=== PATIENT | female | born 1960 | race Caucasian/White ===

== ENCOUNTER 2021-07-16 10:59 | Emergency (ER) | payer OTHER, SELFPAY ==
--- NOTE | ~2021-07-16 | XR_ITS ---
EXAMINATION: XR shoulder RT min 2V EXAM DATE: 07/16/2021 12:12 INDICATION: Fall a few days ago. Initial encounter. Persistent pain. TECHNIQUE: The following right shoulder projections obtained: frontal projection with internal rotati on, frontal projection with external rotation, Grashey, and scapular Y view (4+ views). There is no prior study for comparison. FINDINGS: No evidence of right shoulder rotator cuff calcific tendinosis. There is no glenohumeral joint, moderate acromioclavicular joint primary osteoarthritis. There are no acute fractures or dislo cations identified. There is no subcutaneous gas. The soft tissue is unremarkable. There are no r adiopaque foreign bodies. IMPRESSION: 1. Right shoulder exam without acute osseous findings. 2. Acromioclavicular moderate osteoarthritis. Reviewed, dictated and finalized at location A. [facility]
--- NOTE | ~2021-07-16 | XR_ITS ---
EXAMINATION: XR elbow RT min 3V EXAM DATE: 07/16/2021 12:12 INDICATION: fall a few days ago with persistent right elbow pain. TECHNIQUE: Right elbow frontal, lateral with flexion, and oblique projections obtained and reviewed. There is no prior study for comparison. FINDINGS: Right elbow anterior humeral line intact. There is mild right elbow primary osteoarthritis . There are no acute fractures or dislocations identified. There is no subcutaneous gas. The soft t issue is unremarkable. There are no radiopaque foreign bodies. IMPRESSION: 1. XR elbow RT min 3V exam without acute osseous findings. Reviewed, dictated and finalized at location A. [facility]
[2021-07-16 11:27] VITALS: BP 143/74; PULSE 79; RESP 18; TEMP 36.5; O2SAT 100
--- NOTE | 2021-07-16 11:50 | ED.UPPEXIN ---
HPI - Extremity Injury (Upper) General Chief Complaint: Extremity Injury, Upper Stated Complaint: Rt Elbow,Rt Shoulder Pain due to fall Source: patient, RN notes reviewed and old records reviewed Mode of arrival: ambulatory Limitations: no limitations History of Present Illness HPI narrative: 61-year-old female who presents to [facility] with complaints of fall with injury to her right shoulder and right elbow when tripped over door prop and fell into a cinder block wall onto right shoulder and right elbow Friday evening. Patient has pain to posterior aspect of right shoulder with pain radiating down posterior aspect of her upper arm to her elbow. She also states that she has pain to right elbow region at olecranon process area. Patient reports that she did not fall onto ground but into cinder wall hitting her shoulder and elbow area, did not hit head or lose consciousness. Patient denies any tingling or numbness to her right arm with full ROM noted to right arm and shoulder, pulses right arm strong quality. Patient reports that she has used ice, heat, stretching exercises, Tylenol and pillows for support with pain worse at night with some difficulty sleeping, rates pain 6/10. MD complaint: injury to: right, shoulder and elbow Onset (ago): day(s) (5) Other injuries: none Place: outdoors Severity: moderate Severity scale (1-10): 6 Treatments prior to arrival: cold therapy (heat) and other (Tylenol) Related Data Home Medications Medication Instructions Recorded Confirmed No Home Medications 07/16/21 07/16/21 Allergies Allergy/AdvReac Type Severity Reaction Status Date / Time No Known Allergies Allergy Verified 07/16/21 11:44 Review of Systems Review of Systems: CONSTITUTIONAL: Denies fever, chills, or sweats. EYES: Denies visual changes, redness, or discharge. ENT: Denies rhinorrhea, congestion, sore throat, or otalgia. CARDIOVASCULAR: Denies chest pain, palpitations, or edema. RESPIRATORY: Denies cough or dyspnea. GASTROINTESTINAL: Denies abdominal pain, nausea, vomiting, or diarrhea. GENITOURINARY: Denies dysuria or hematuria. SKIN: Denies rash or itching. MUSCULOSKELETAL: Denies back pain,positive for right shoulder and right elbow joint pain, or myalgia. NEUROLOGIC: Denies headache, numbness, or weakness. PSYCHIATRIC: Denies anxiety or depression. All systems reviewed & are unremarkable except as noted in HPI and below PMFSH Past Medical History Medical History (Updated 07/16/21 @ 22:42 by Zeynep Lynn NP) Seasonal allergies Surgical History Surgical History (Updated 07/16/21 @ 12:16 by Zeynep Lynn NP) H/O: hysterectomy History of tonsillectomy Family History Family History (Updated 07/16/21 @ 22:43 by Zeynep Lynn NP) Grandparent Cerebrovascular accident Mother Rheumatoid arthritis Lung cancer Sibling Rheumatoid arthritis Social History Social History (Updated 07/16/21 @ 22:44 by Zeynep Lynn NP) Smoking status: Never smoker Alcohol intake: never Substance use: never Living arrangements: with family Gender identity (if verbalized by the patient): Female Comments At time of signature, agree with nursing past medical, surgical, social and family history. There is no relevant family history pertinent to the presenting complaint Exam Narrative: GENERAL: Well-appearing, well-nourished, and in no acute distress. HEAD: Normocephalic, atraumatic. EYES: PERRLA and EOMI. ENT: Nares clear, no rhinorrhea or epistaxis. Mucous membranes moist.TM's normal with good light reflex throat pink with no lesions or exudates, tonsils absent NECK: Supple.no lymphadenopathy CHEST: Clear to auscultation. No respiratory distress.SAO2 100% on room air HEART: Regular rate and rhythm. No murmur heard. Normal peripheral pulses. ABDOMEN: Soft, nontender, nondistended, normal active bowel sounds. EXTREMITIES: Normal range of motion. No edema Pain to posterior right shoulder radiating
== END 2021-07-16 12:34 | disposition home or self-care (01) ==
PROVIDERS: Emergency Provider Registered Nurse
DX: S40.011A Contusion of right shoulder, initial encounter (principal); S50.01XA Contusion of right elbow, initial encounter; W18.09XA Striking against other object with subsequent fall, initial encounter
CPT/HCPCS: 73030; 73080; 99214; G0463

== ENCOUNTER 2022-12-13 12:18 | Emergency (ER) | payer OTHER, SELFPAY ==
[2022-12-13 12:26] VITALS: BP 141/77; PULSE 82; RESP 18; TEMP 36.3; O2SAT 98
[2022-12-13 12:27] VITALS: BP 141/77; PULSE 82; RESP 18; TEMP 36.3; O2SAT 98
--- NOTE | 2022-12-13 12:35 | ED.SKABFB ---
HPI - Skin/Abscess/Foreign Bdy General Chief complaint: Skin/Abscess/Foreign Body Stated complaint: Insect Bite Rt Breast Time Seen by Provider: 12/13/22 12:34 Source: patient and RN notes reviewed Mode of arrival: ambulatory Limitations: dementia History of Present Illness HPI narrative: 62-year-old female presents with concern for possible insect bite to her right breast. She reports she noticed the bite 2 days ago, she has been using antibiotic ointment and a bandage. Reports areas got slightly smaller but it did have some bloody drainage this morning. She denies general malaise, fever, aches, chills, sweats. She denies purulent discharge. She denies any red streaking. She reports she gets yearly mammograms her last mammogram was in July and was normal MD complaint: insect bite/sting and other (Redness) Related Data Allergies Allergy/AdvReac Type Severity Reaction Status Date / Time No Known Allergies Allergy Verified 12/13/22 12:27 Review of Systems Review of Systems: CONSTITUTIONAL: Denies malaise, chills, sweats, or fever. EYES: Denies redness, or discharge. ENT: Denies rhinorrhea, congestion, swollen lips, swollen tongue CARDIOVASCULAR: Denies chest pain, palpitations, or edema. RESPIRATORY: Denies cough or dyspnea. GASTROINTESTINAL: Denies abdominal pain, nausea, vomiting SKIN: Reports raised red slightly tender area to the right breast. Denies purulent drainage, vesicles, bullae, numbness, pain beyond proportion MUSCULOSKELETAL: Denies joint pain or myalgia. NEUROLOGIC: Denies headache. All systems reviewed & are unremarkable except as noted in HPI and below PMFSH Past Medical History Medical History (Updated 12/13/22 @ 12:42 by Vianca Katz NP) Seasonal allergies Surgical History Surgical History (Updated 07/16/21 @ 12:16 by Zeynep Lynn NP) H/O: hysterectomy History of tonsillectomy Family History Family History (Updated 07/16/21 @ 22:43 by Zeynep Lynn NP) Grandparent Cerebrovascular accident Mother Rheumatoid arthritis Lung cancer Sibling Rheumatoid arthritis Social History Social History (Updated 07/16/21 @ 22:44 by Zeynep Lynn NP) Smoking status: Never smoker Alcohol intake: never Substance use: never Living arrangements: with family Gender identity (if verbalized by the patient): Female Comments At time of signature, agree with nursing past medical, surgical, social and family history. There is no relevant family history pertinent to the presenting complaint Exam Narrative: GENERAL: Well-appearing, well-nourished, and in no acute distress. HEAD: Normocephalic, atraumatic. EYES: PERRLA, conjunctivae clear ENT: Mucous membranes moist. NECK: Supple. No lymphadenopathy CHEST: Clear to auscultation. No respiratory distress. HEART: Regular rate and rhythm. SKIN: Warm, dry. Approximately 2 cm raised circular erythema, induration, tenderness, warmth with sharp margins noted to the right breast without purulent drainage. No vesicles, bullae, necrosis, ecchymosis, crepitus noted. NEURO: Alert and oriented x3. PSYCH: Normal mood and affect Course Course Emergency Course: I discussed with patient that this slightly infected insect bite can likely heal without any antibiotic, if using warm moist compresses. However I had prescribed antibiotic in case symptoms do not improve. Patient is agreeable to this plan Patient is aware of diagnosis, understands and agrees to treatment plan. Anticipatory guidance given. Patient agrees to follow-up as directed and is aware of reasons to seek care at the emergency department. Portions of this record may have been created with voice recognition software Level of Care: Express Care Visit Vital Signs Vital signs: Vital Signs Temperature 97.3 F L 12/13/22 12:26 Pulse Rate 82 12/13/22 12:26 Respiratory Rate 18 12/13/22 12:26 Blood Pressure 141/77 H 12/13/22 12:26 Pulse Oximetry 98
== END 2022-12-13 12:45 | disposition home or self-care (01) ==
PROVIDERS: Emergency Provider Nurse Practitioner
DX: S20.161A Insect bite (nonvenomous) of breast, right breast, initial encounter (principal); W57.XXXA Bitten or stung by nonvenomous insect and other nonvenomous arthropods, initial encounter
CPT/HCPCS: 99213; G0463

== ENCOUNTER 2023-09-10 11:22 | Emergency (ER) | payer OTHER, SELFPAY ==
[2023-09-10 11:40] VITALS: BP 141/66; PULSE 77; RESP 18; TEMP 36.3; O2SAT 99
--- NOTE | 2023-09-10 12:22 | ED.URI ---
HPI - URI/Sore Throat General Chief Complaint: Upper Respiratory Infection Stated Complaint: cough/mucas in throat Time Seen by Provider: 09/10/23 12:23 Source: patient and RN notes reviewed Mode of arrival: ambulatory Limitations: no limitations History of Present Illness HPI Narrative: 63 y/o female presented for c/o cough, sinus pain, congestion with loss of taste/smell. Onset 08/28, pt called [facility] the following day and was prescribed abx and benzonatate. Tested negative for covid the day of onset. Cough is now productive of yellow or clear sputum. Cough causes sinus pressure behind cheeks. Taking mucinex DM, zyrtec, and Nasacort. Denies sob, wheezing, n/v/d/f/c. States she has hx bronchitis which is usually relieved with otc meds. MD elicited complaint: cough Related Data Allergies Allergy/AdvReac Type Severity Reaction Status Date / Time No Known Allergies Allergy Verified 09/10/23 11:48 Review of Systems Review of Systems: CONSTITUTIONAL: Denies malaise, chills, sweats, fever EYES: Denies visual changes, redness, or discharge ENT: Reports rhinorrhea, congestion, sinus pain, denies otalgia, sore throat CARDIOVASCULAR: Denies chest pain, palpitations, edema RESPIRATORY: Reports cough, post nasal drainage. Denies dyspnea GASTROINTESTINAL: Denies abdominal pain, nausea, vomiting, diarrhea SKIN: Denies rash or itching MUSCULOSKELETAL: Denies myalgia PMFSH Past Medical History Medical History Seasonal allergies Surgical History Surgical History H/O: hysterectomy History of tonsillectomy Family History Family History Grandparent Cerebrovascular accident Mother Rheumatoid arthritis Lung cancer Sibling Rheumatoid arthritis Social History Social History Smoking status: Never smoker Alcohol intake: never Substance use: never Living arrangements: with family Gender identity (if verbalized by the patient): Female Exam Narrative: GENERAL: Mildly Ill-appearing, nontoxic no acute distress. EYES: PERRLA, conjunctivae clear ENT: Mucous membranes moist. TMs pearly albarran with dull light reflex bilaterally; no tragal tenderness. Oropharynx not erythematous without lesions or exudate, no drooling, no hoarseness, no trismus, uvula midline. NECK: Supple. No lymphadenopathy CHEST: Clear to auscultation, breath sounds equal. No wheezing, rhonchi, rales, or stridor. No respiratory distress, speaks in full sentences. HEART: Regular rate and rhythm. No murmur heard. SKIN: Warm, dry, no rash. NEURO: Alert and oriented x3. PSYCH: Normal mood and affect Course Course Emergency Course: Patient is aware of diagnosis, understands and agrees to treatment plan. Anticipatory guidance given. Patient agrees to follow-up as directed and is aware of reasons to seek care at the emergency department. Portions of this record may have been created with voice recognition software Level of Care: Express Care Visit Vital Signs Vital signs: Vital Signs Temperature 97.3 F L 09/10/23 11:40 Pulse Rate 77 09/10/23 11:40 Respiratory Rate 18 09/10/23 11:40 Blood Pressure 141/66 H 09/10/23 11:40 Pulse Oximetry 99 09/10/23 11:40 Oxygen Delivery Room Air 09/10/23 11:40 Temperature 97.3 F L 09/10/23 11:40 Pulse Rate 77 09/10/23 11:40 Respiratory Rate 18 09/10/23 11:40 Blood Pressure 141/66 H 09/10/23 11:40 Pulse Oximetry 99 09/10/23 11:40 Oxygen Delivery Room Air 09/10/23 11:40 reviewed MDM - URI/Sore Throat MDM Narrative Medical decision making narrative: Discussed physical exam findings, advised sx were likely viral at onset. No abx at this time, will start steroid for the cough. Advised supportive measures and signs/symptoms to go to the ER. Pt is approp
== END 2023-09-10 12:41 | disposition home or self-care (01) ==
PROVIDERS: Emergency Provider Nurse Practitioner Family
DX: J40 Bronchitis, not specified as acute or chronic (principal)
CPT/HCPCS: 99213; G0463

== ENCOUNTER 2024-04-19 14:15 | Outpatient (RCR) | payer OTHER, SELFPAY ==
--- NOTE | 2024-01-29 16:12 | PTOPEVAL1 ---
Assessment and note entered by Sanujana Alfaro, PT Evaluation Information Assessment Status Evaluation Diagnosis M25.562 ICD-10 Condition Codes (PT) Pain in left knee M25.562 Onset gradual, several years ago, worse the last 2 years . Subjective Information Pt reports that several years ago, she started having knee pain which gradually got worse. a few months ago, from November to December, she states was the worst pain she has had which resulted to her having to cancel regular sport activities (mostly Golfing). She has 2 LUPE, 15 steps with 1 HR to go to the basement where laundry is located. states she goes down steps backwards, goes up forwards and follows [id number] technique. When knee pain is flared up, she states she practices increased caution and is very methodological with her movements. L knee pain medial side > lateral side, she knows it is swollen today because it feels tight underneath/ inside the joint. Reported Pain Level Pain Score 0: Self Report Assessment PT Clinical Summary Pt is a 63yo female who presents to therapy with L knee pain which is chronic in nature that has flared up a couple months ago, but is now feeling better after Prednisone shots. The pain greatly impact her daily activities and recreational activities as well mainly her favorite sports: golfing, pickle balling. She demos impaired gait pattern secondary to pain and guarding of LLE during standing and ambulation tasks, decreased ROM, weakness and postural deficits. She will benefit from skilled PT to improve general BLE strength, reduce pain and return to performing IADLs without pain and discomfort. Plan of Care Interventions Electrical Stimulation,Gait Training,Hot Pack/Cold Pack,Intermittent Compression,Manual Therapy, Neuro Re-education,Patient/Caregiver Education, Therapeutic Activities,Therapeutic Exercise, Ultrasound Other Interventions IASTM, Taping PT Services Indicated Yes Treatment Frequency and 2x/wk x 12 visits Duration These treatments will address the objective and functional deficits as defined above. The patient will be advanced safely and appropriately in order for the patient to progress towards his/her prior level of function. Additional exercises will be introduced and as well as a comprehensive home exercise program upon discharge, if needed, ?to ensure carryover of functional gains achieved in the clinic. This treatment plan has been reviewed and agreement upon by the patient.
--- NOTE | 2024-02-13 13:57 | PTOPPROG ---
Assessment and note entered by Sanjuana Alfaro, PT Evaluation Information Assessment Status Progress Diagnosis M25.562 ICD-10 Condition Codes (PT) M25.561,Pain in left knee M25.562,R26.9 Onset gradual, several years ago, worse the last 2 years . Subjective Information Pt came back in the area after her 10-day trip to [place] to visit grandkijorge, did a lot of walking and standing; carrying her 11-month old grandkid while walking, States she was also going up/down stairs and is feeling slightly sore R > L. She gets up 1 step at a time and leads with R LE due to fear of buckling on the L knee. R knee seems to be more painful today than the L. Assessment PT Clinical Summary Pt initially presented to therapy with c/o L knee which is progressing well. She now reports soreness and increased pain to lateral area of her R knee. Demos extremity circumference difference with R > L. Will benefit from skilled PT treatment to BLEs to address pain and deficits and improve indep ambulation on various surfaces and stairs. Plan of Care Interventions Electrical Stimulation,Gait Training,Hot Pack/Cold Pack,Intermittent Compression,Manual Therapy, Neuro Re-education,Patient/Caregiver Education, Therapeutic Activities,Therapeutic Exercise, Ultrasound Other Interventions IASTM, Taping PT Services Indicated Yes Treatment Frequency and 2x/wk x 12 visits Duration These treatments will address the objective and functional deficits as defined above. The patient will be advanced safely and appropriately in order for the patient to progress towards his/her prior level of function. Additional exercises will be introduced and as well as a comprehensive home exercise program upon discharge, if needed, ?to ensure carryover of functional gains achieved in the clinic. This treatment plan has been reviewed and agreement upon by the patient.
--- NOTE | 2024-02-16 16:40 | PCPTNOTE ---
Pt called to re-schedule due to receiving a Cortisone shot today.
--- NOTE | 2024-02-21 16:32 | PCPTNOTE ---
LATE ENTRY NOTE FOR 02/18/2024: Thera exercises: Pt educated on performing HEPs to B knees; Discussion on changes with POC to include B knees due to equally painful and swollen. Instructed pt in performing 10 sec hold x 5 reps of the ff to the L knee only at this time (instructed to perform bilat at home): 1. hamstrings + gastroc stretch with band 2. prone quad stretch with band 3. ITB stretch 4. glute sets and quad sets 5. hooklying ball squeeze with LAQs Manual Therapy: -patellar mobilization -soft tissue mob to ITB, TFL and quads -passive stretch to piriformis
--- NOTE | 2024-03-23 15:21 | PTOPPROG ---
Assessment and note entered by Sanjuana Alfaro, PT Re-Eval Information Assessment Status Progress Diagnosis M25.562 ICD-10 Condition Codes (PT) M25.561,Pain in left knee M25.562,R26.9 Onset gradual, several years ago, worse the last 2 years . Subjective Information Pt reports feeling overall in good condition, there is no pain to bilat knees today. She reports wanting to continue therapy to further improve strength and stability to bilat knee R>L. Assessment PT Clinical Summary Pt has received 10 skilled PT treatment sessions and demos good gains in strength and mobility and significant reduction in pain and discomfort. Pt has also met 2/4 of established short term goal and has partially met the 2 LTGs. However, she pointed out her concern of instability when performing squats/repeated bending which resulted to increased risk for falls at this time. She will benefit from continued skilled PT intervention to gear towards improving stability to bilat knees and improve balance to reduce risk for falls and improve standing and ambulation without discomfort . Plan of Care Interventions Electrical Stimulation,Gait Training,Hot Pack/Cold Pack,Intermittent Compression,Manual Therapy, Neuro Re-education,Patient/Caregiver Educati, Therapeutic Activities,Therapeutic Exercise, Ultrasound,Other Other Interventions IASTM, Taping PT Services Indicated Yes Treatment Frequency and 1-2x/wk x 8 visits Duration These treatments will address the objective and functional deficits as defined above. The patient will be advanced safely and appropriately in order for the patient to progress towards his/her prior level of function. Additional exercises will be introduced and as well as a comprehensive home exercise program upon discharge, if needed, ?to ensure carryover of functional gains achieved in the clinic. This treatment plan has been reviewed and agreement upon by the patient.
== END 2024-04-26 15:48 | disposition still patient (30) ==
LOC: ANHHIPT 14:15
PROVIDERS: PCP Nurse Practitioner Family; Visit Provider Nurse Practitioner Family
DX: M25.562 Pain in left knee (principal)
CPT/HCPCS: 97016; 97032; 97035; 97110; 97112; 97140; 97161; 97530; 97750

== ENCOUNTER 2024-05-07 12:30 | Outpatient (RCR) | payer OTHER, SELFPAY ==
--- NOTE | 2024-05-24 12:49 | PTOPDC ---
Assessment and note entered by Sanjuana Alfaro, PT Discharge Information Assessment Status Discharge Diagnosis M25.562 ICD-10 Condition Codes (PT) Pain in right knee M25.561,Pain in left knee M25. 562,Abnormalities of gait and mobility R26.9 Onset gradual, several years ago, worse the last 2 years . Subjective Information Pt reports she is satisfied with the therapy program and has gained knowledge with regards to managing knee wellness, states she is now [facility] and attends water aerobics 4x/wk, performs walking exercises daily. Reports she feels slight soreness post exercises but not joint pain anymore. Assessment PT Clinical Summary Pt received a total of 18 skilled PT sessions and demos good gains in strength, flexibility and significant reduction in pain. Reports being able to participate in recreational activities and socialization without increased pain really improved her QOL. Agreeable to DC today, states compliant with HEPs and maintenance health program . Skilled PT discontinued at this time. Plan of Care PT Services Indicated No
== END 2024-05-24 08:48 | disposition still patient (30) ==
LOC: ANHHIPT 12:30
PROVIDERS: PCP Nurse Practitioner Family; Visit Provider Nurse Practitioner Family
DX: M25.562 Pain in left knee (principal)
CPT/HCPCS: 97035; 97110; 97140; 97750